=== PATIENT | male | born 1950 | race Caucasian/White ===

== ENCOUNTER 2022-02-17 00:36 | Emergency (ER) | payer OTHER ==
[2022-02-17] MEDS ORDERED: morphine INJ 10 MG/ML 1ML (SYR OR VIAL) IVP STA (01:10)
[2022-02-17] MEDS ORDERED: LIDOCAINE 2% VISCOUS 15 ML UDC PO ONE (01:15)
[2022-02-17 01:43] LABS: BASOPHILS # (AUTO) 0.1 10^3/uL (0.0-0.1); BASOPHILS % (AUTO) 1 % (0-10); EOSINOPHILS # (AUTO) 0.4 10^3/uL (0.0-0.3); EOSINOPHILS % (AUTO) 4 % (0-10); HEMATOCRIT 41 % (40-54); HEMOGLOBIN 14.5 g/dL (13.3-17.7); LYMPHOCYTES # (AUTO) 2.4 10^3/uL (1.0-4.0); LYMPHOCYTES % (AUTO) 23 % (12-44); MEAN CORPUSCULAR HEMOGLOBIN 29 pg (25-34); MEAN CORPUSCULAR HGB CONC 35 g/dL (32-36); MEAN CORPUSCULAR VOLUME 84 fL (80-99); MEAN PLATELET VOLUME 9.7 fL (9.0-12.2); MONOCYTES # (AUTO) 0.7 10^3/uL (0.0-1.0); MONOCYTES % (AUTO) 7 % (0-12); NEUTROPHILS % (AUTO) 66 % (42-75); PLATELET COUNT 240 10^3/uL (130-400); WHITE BLOOD COUNT 10.6 10^3/uL (4.3-11.0)
--- NOTE | 2022-02-17 02:01 | ED General ---
General Chief Complaint: Cardiac/General Problems Stated Complaint: HIGH BLOOD PRESSURE 220/97; TOOTHPAIN Nursing Triage Note: TO ED VIA POV AND AMBULATORY TO ROOM 5 WITH C/O TOOTH ACHE. PT STATES "IT WAS THROBBING SO I THOUGHT I BETTER CHECK MY BLOOD PRESSURE". PT STATES SBP 190s-200s. PER PT HE TOOK RX LISINOPRIL 40MG PO AT 2200. HAS TAKEN "QUITE A FEW IBUPROFENS" AND APPLIED ORAJEL TO TOOTH WITHOUT RELIEF. Source of Information: Patient, Family Exam Limitations: No Limitations History of Present Illness Date Seen by Provider: Feb 17, 2022 Time Seen by Provider: 01:00 Initial Comments This is 71-year-old gentleman presents to the emergency room with complaint of severe lower tooth pain from an eroded tooth. Pain became severe around 1600 yesterday. Between 1500 and 2200 he believes he took approximately 14 tablets of acetaminophen 500 mg. He additionally took a couple of ibuprofen that his gave him. Pain has not improved. He notes his blood pressure has been severely high since having the pain. He took an extra lisinopril 40 mg at approximately 2200 to help manage his blood pressure. He normally takes his lisinopril in the morning. Allergies and Home Medications Allergies Coded Allergies: No Known Drug Allergies (Unverified , 02/17/22) Patient Home Medication List Home Medication List Reviewed: Yes Amoxicillin (Amoxicillin) 500 Mg Capsule, 1,000 MG PO BID Prescribed by: CATRACHO LANDEROS on 02/17/22 030 Hydrocodone/Acetaminophen (Hydrocodone-Acetamin 5-325 mg) 5 Mg-325 Mg Tablet, 1 TAB PO Q4H PRN for PAIN-MODERATE (5-7) Prescribed by: CATRACHO LANDEROS on 02/17/22 030 Review of Systems Review of Systems Constitutional: no symptoms reported EENTM: see HPI Respiratory: no symptoms reported Cardiovascular: see HPI Gastrointestinal: no symptoms reported Genitourinary: no symptoms reported Musculoskeletal: no symptoms reported Skin: no symptoms reported Psychiatric/Neurological: No Symptoms Reported Hematologic/Lymphatic: No Symptoms Reported Immunological/Allergic: no symptoms reported Past Lktvgxt-Ncclqo-Lzzepz Hx Patient Social History Tobacco Use?: No Smoking Status: Former Smoker Use of E-Cig and/or Vaping dev: No Substance use?: No Alcohol Use?: No Immunizations Up To Date Influenza Vaccine Up-to-Date: No; Not Current COVID19 Vaccine Blind Hanger: MODERNA (PT STATES HAS HAD 4 VACCINES) Past Medical History Surgeries: Yes Orthopedic Respiratory: No Cardiac: Yes (Congestive heart failure) Hypertension Neurological: No Genitourinary: No Gastrointestinal: No Musculoskeletal: No Endocrine: No HEENT: No Cancer: No Psychosocial: No Physical Exam Vital Signs Vital Signs - First Documented 02/17/22 02/17/22 00:52 02:11 Temp 37.3 Pulse 62 Resp 16 B/P (MAP) 196/101 (132) Pulse Ox 96 O2 Delivery Room Air Capillary Refill : Less Than 3 Seconds Height, Weight, BMI Height: '" Weight: lbs. oz. kg; BMI Method: General Appearance: WD/WN, Mild Distress HEENT: PERRL/EOMI, TMs Normal, Other (Multiple missing teeth. The affected tooth on the right lower jaw is eroded on the posterior aspect) Neck: Normal Inspection; No JVD Respiratory: Lungs Clear, Normal Breath Sounds, No Accessory Muscle Use Cardiovascular: Regular Rate, Rhythm, No Edema, No Murmur Gastrointestinal: Non Tender, Soft Extremity: Normal Inspection, No Pedal Edema Neurologic/Psychiatric: Alert, Oriented x3, No Motor/Sensory Deficits, Normal Mood/Affect Skin: Normal Color, Warm/Dry Progress/Results/Core Measures Suspected Sepsis SIRS Temperature: Pulse: 62 Respiratory Rate: 16 Laboratory Tests 02/17/22 01:30: White Blood Count 10.6 Blood Pressure 196 /101 Mean: 132 Laboratory Tests 02/17/22 01:30: Creatinine 1.11, Platelet Count 240, Total Bilirubin 0.4 Results/Orders Lab Results Laboratory Tests Test 02/17/22 01:30 Range/Units White Blood Count 10.6 4.3-11.0 10^3/uL Red Blood Count 4.93 4.30-5.52 10^6/uL Hemoglobin 14.5 13.3-17.7 g/dL Hematocrit 41 40-54 % Mean Corpuscular Volume 84 80-99 fL Mean Corpuscular Hemoglobin 29 25-34 pg Mean Corpuscular Hemoglobin Concent 35 32-36 g/dL Red Cell Distribution Width 12.9 10.0-14.5 % Platelet Count 240 130-400 10^3/uL Mean Platelet Volume 9.7 9.0-12.2 fL Immature Granulocyte % (Auto) 0 % Neutrophils (%) (Auto) 66 42-75 % Lymphocytes (%) (Auto) 23 12-44 % Monocytes (%) (Auto) 7 0-12 % Eosinophils (%) (Auto) 4 0-10 % Basophils (%) (Auto) 1 0-10 % Neutrophils # (Auto) 7.0 1.8-7.8 10^3/uL Lymphocytes # (Auto) 2.4 1.0-4.0 10^3/uL Monocytes # (Auto) 0.7 0.0-1.0 10^3/uL Eosinophils # (Auto) 0.4 H 0.0-0.3 10^3/uL Basophils # (Auto) 0.1 0.0-0.1 10^3/uL Immature Granulocyte # (Auto) 0.0 0.0-0.1 10^3/uL Sodium Level 140 135-145 MMOL/L Potassium Level 3.7 3.6-5.0 MMOL/L Chloride Level 103 98-107 MMOL/L Carbon Dioxide Level 24 21-32 MMOL/L Anion Gap 13 5-14 MMOL/L Blood Urea Nitrogen 15 7-18 MG/DL Creatinine 1.11 0.60-1.30 MG/DL Estimat Glomerular Filtration Rate 71 BUN/Creatinine Ratio 14 Glucose Level 106 H 70-105 MG/DL Calcium Level 9.4 8.5-10.1 MG/DL Corrected Calcium 9.2 8.5-10.1 MG/DL Total Bilirubin 0.4 0.1-1.0 MG/DL Aspartate Amino Transf (AST/SGOT) 19 5-34 U/L Alanine Aminotransferase (ALT/SGPT) 22 0-55 U/L Alkaline Phosphatase 70 40-136 U/L B-Type Natriuretic Peptide 40.4 <100.0 PG/ML Total Protein 7.2 6.4-8.2 GM/DL Albumin 4.3 3.2-4.5 GM/DL TSH [place] Testing 1.26 0.35-4.94 UIU/ML Acetaminophen Level < 10 L 10-30 UG/ML My Orders Orders - CATRACHO FLORES MD Acetaminophen (02/17/22 01:10) Cbc With Automated Diff (02/17/22 01:10) Comprehensive Metabolic Panel (02/17/22 01:10) Ed Iv/Invasive Line Start (02/17/22 01:10) Morphine Injection (Morphine Injection (02/17/22 01:10) Lidocaine 2% Viscous 15 Ml (Xylocaine Vi (02/17/22 01:15) Bnp Ronda (02/17/22 02:02) Thyroid Analyzer (02/17/22 02:02) Amoxicillin Capsule (Polymox Capsule) (02/17/22 02:27) Hydrocodone/Apap 5/325 Tablet (Lortab 5 (02/17/22 03:15) Medications Given in ED Current Medications Medications Dose Ordered Sig/Jean Route Start Time Stop Time Status Last Admin Dose Admin Acetaminophen/ Hydrocodone Bitart 1 ea ONCE ONCE PO 02/17/22 03:15 02/17/22 03:16 DC 02/17/22 03:17 1 EA Lidocaine HCl 5 ml ONCE ONCE PO 02/17/22 01:15 02/17/22 01:16 DC 02/17/22 01:42 5 ML Vital Signs/I&O 02/17/22 02/17/22 02/17/22 00:52 02:11 03:18 Temp 37.3 37.3 Pulse 62 58 62 Resp 16 16 B/P (MAP) 196/101 (132) 163/92 (115) 182/100 Pulse Ox 96 96 O2 Delivery Room Air Room Air Room Air Capillary Refill : Less Than 3 Seconds Blood Pressure Mean: 132 Progress Note : Progress Note Pain was treated with morphine. Potential dental infection was treated with amoxicillin. Blood pressure trended down nicely after treating pain. Hydrocodone was additionally given prior to discharge. Lab work-up was unremarkable. Although patient stated he had taken excessive amounts of Tylenol, no Tylenol was detected on his toxicology screen. See discharge instructions for further discussion. Departure Impression Primary Impression: Pain, dental Additional Impression: Episode of hypertension Disposition: HOME, SELF-CARE Condition: Improved Departure-Patient Inst. Decision time for Depature: 03:01 Referrals: RAMANA HANSON MD (PCP/Family) Primary Care Physician Patient Instructions: High Blood Pressure in Adults, Dental Pain Add. Discharge Instructions: Complete your antibiotics as prescribed. Follow-up with a dentist as soon as possible for extraction of the affected tooth. Ask the dentist to put you on a callback list if there are any cancel lations. You may use hydrocodone as prescribed for more severe pain. Use ibuprofen up to 400 mg every 4 hours as needed for primary pain control. You may additionally use the anesthetic gauze pads as provided. Tuck these behind the tooth so that the anesthetic medication contacts the broken surface of the tooth. Eat and drink with caution after using these gauze pads as your tongue, lips, and throat may be numb. Do not fall asleep with these gauze pads in your mouth as that may present a choking risk. Your blood pressure was significantly elevated in the emergency room today. Please follow-up with your primary care provider to discuss blood pressure management. Since you took your lisinopril early, do not take an additional dose this morning. Return to care if you have worsening symptoms despite following these instructions. All discharge instructions reviewed with patient and/or family. Voiced understanding. Scripts Hydrocodone/Acetaminophen (Hydrocodone-Acetamin 5-325 mg) 5 Mg-325 Mg Tablet 1 TAB PO Q4H PRN for PAIN-MODERATE (5-7), #10 TAB Prov: CATRACHO FLORES MD 02/17/22 Amoxicillin (Amoxicillin) 500 Mg Capsule 1000 MG PO BID, #40 CAP 0 Refills Prov: CATRACHO FLORES MD 02/17/22 Copy Copies To 1: RAMANA HANSON MD, JOSHUA T MD Feb 17, 2022 02:01
[2022-02-17 02:05] LABS: ACETAMINOPHEN < 10 UG/ML (10-30); ALANINE AMINOTRANSFERASE 22 U/L (0-55); ALBUMIN 4.3 GM/DL (3.2-4.5); ALKALINE PHOSPHATASE 70 U/L (40-136); BILIRUBIN,TOTAL 0.4 MG/DL (0.1-1.0); BUN/CREATININE RATIO 14; CALCIUM 9.4 MG/DL (8.5-10.1); CARBON DIOXIDE 24 MMOL/L (21-32); CHLORIDE 103 MMOL/L (98-107); CREATININE SERUM 1.11 MG/DL (0.60-1.30); GFR ESTIMATED 71; GLUCOSE 106 MG/DL (70-105); POTASSIUM 3.7 MMOL/L (3.6-5.0); SODIUM 140 MMOL/L (135-145); TOTAL PROTEIN 7.2 GM/DL (6.4-8.2)
[2022-02-17] MEDS ORDERED: AMOXICILLIN 500 MG (POLYMOX) CAP PO STA (02:27)
[2022-02-17] MEDS ORDERED: AMOX500C2 PO (03:09)
[2022-02-17] MEDS ORDERED: ACHD5005 PO (03:09)
[2022-02-17] MEDS ORDERED: HYDROcodone/APAP 5 MG/325 MG (LORTAB) TAB PO ONE (03:15)
[2022-02-17 03:18] VITALS: BP 182/100
== END 2022-02-17 03:18 | disposition home or self-care (01) ==
LOC: EDUNIT# 00:36 → ER 00:40
DX: K08.89 Other specified disorders of teeth and supporting structures (principal); I11.0 Hypertensive heart disease with heart failure; I50.9 Heart failure, unspecified; Z87.891 Personal history of nicotine dependence
CPT/HCPCS: 36415; 80053; 80329; 83880; 84443; 85025; 99283